=== PATIENT | female | born 1965 | race African-American/Black ===

== ENCOUNTER 2018-12-26 22:43 | Inpatient (IN) ==
[2018-12-26] MEDS ORDERED: NS 1,500 ML IV ONE (23:07)
[2018-12-26] MEDS ORDERED: VANCOMYCIN 1 GM/NS 1 GM/250 ML IVPB IV ONE (23:08)
[2018-12-26] MEDS ORDERED: ZOSYN 3.375 GM in NS 50 ML IV ONE (23:08)
[2018-12-26] MEDS ORDERED: ZOFRAN IV ONE (23:11)
[2018-12-26] MEDS ORDERED: MORPHINE IV ONE (23:11)
[2018-12-26 23:31] LABS: BASO# 0.01 X1000 (0.0-0.2); BASO% 0.5 % (0.0-0.8); EOS# 0.01 X1000 (0.0-0.7); EOS% 0.5 % (0.0-10.0); HEMATOCRIT 31.6 % (37.0-47.0); HEMOGLOBIN 10.1 g/dL (12.0-16.0); IMM GRAN# 0.01 X1000 (0.0-0.04); IMM GRAN% 0.5 % (0.0-0.5); LYMPH# 0.45 X1000 (1.2-3.4); LYMPH% 21.6 % (20.5-51.1); MONO# 0.46 X1000 (0.11-0.59); MONO% 22.1 % (1.7-9.3); MPV 11.1 FL (7.4-10.4); NEUT# 1.14 X1000 (1.4-6.5); NEUT% 54.8 % (42.2-75.2); PLT 112 X1000 (130-400); RBC 4.39 XMIL (4.2-5.4); RDW 13.9 % (11.5-14.5); WBC 2.08 X1000 (4.8-10.8)
[2018-12-26 23:43] LABS: INR 1.05; PROTIME 14.2 Seconds (11.0-16.0)
[2018-12-26 23:44] LABS: PTT 37.7 Seconds (22.3-41.8)
[2018-12-26 23:50] LABS: LYMPHS 24 % (21-51); MONO 16 % (1-9); SEGS 58 % (42-75)
[2018-12-26 23:52] LABS: AGAP 15; ALBUMIN 3.6 g/dL (3.5-5.0); ALKALINE PHOSPHATASE 263 U/L (32-104); BUN 13 mg/dL (8-22); CALCIUM 8.1 mg/dL (8.8-10.2); CHLORIDE 98 mmol/L (98-107); CK PROFILE 59 U/L (24-173); COSMO 271; CREATININE 0.5 mg/dL (0.5-0.9); ESTIMATED GFR > 60; GLUCOSE 119 mg/dL (70-104); GOT 125 U/L (10-30); GPT 49 U/L (10-36); HYPOCHROM OCCASIONAL; LIPASE 20 U/L (13-60); MICROCYTOSIS OCCASIONAL; OVALOCYTES 1+; POIKILOCYTOSIS 1+; POTASSIUM 3.1 mmol/L (3.5-5.1); SODIUM 135 mmol/L (136-145); TCO2 22 mmol/L (25-35); TOTAL PROTEIN 7.8 g/dL (6.3-8.3)
--- NOTE | 2018-12-26 23:54 | PROVIDER DOCUMENTATION ---
HPI-Fever - General Chief Complaint: SEPSIS ALERT - P Stated Complaint: N/V/D Time Seen by Provider: 12/26/18 22:44 Source: patient Allergies/Adverse Reactions: Patient Allergies Allergy/AdvReac Type Severity Reaction Status Date / Time hydroxychloroquine AdvReac Unknown Verified 12/26/18 23:50 [From Plaquenil] Home Medications: Home Medication List Medication Instructions Recorded Confirmed Last Taken Type Lacosamide [Vimpat] 1 each PO DAILY 12/24/15 12/26/18 1 Day Ago History ~08/16/17 Metoprolol Succinate E.r. [Toprol 25 mg PO DAILY #30 tablet 12/25/15 12/26/18 1 Day Ago Rx Xl] ~08/16/17 Elviteg/Angeles/Emtric/Tenofo Dis 1 tab PO QHS 12/26/18 12/26/18 Unknown History [Stribild Tablet] - History of Present Illness-Fever Nature of Presenting Problem: pt c/o worsening abdominal and flank pain x 2 weeks, with hematochezia, and juan blood in stool, pt reports severe diarrhea that is yellow in color w/ mucous x 4 days. pt in HIV positive and has HX of c-diff, and hemorrhoids. pt also reports weight loss and severe body cramping. pt deneis cough and congestion or other respiratory sx at this time. Fever Severity/Quality: reports: greater than 102 F Onset/Duration: reports: unsure Timing: reports: still present, getting worse Severity: reports: severe Context: reports: HIV/AIDS Recent Illness?: reports: UTI, C. 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 Cognitive Baseline: alert, oriented x3 Modifying Factors: improves with: nothing Associated Symptoms: reports: diarrhea, dizziness, fatigue, fever/chills, loss of appetite, malaise, muscle aches, vomiting, weakness, other (flank pain, LLq pain) Similar Symptoms Previously?: No Recently seen or treated by another doctor?: No - Glascow Coma Score Best Eye Response (Tatyana): (4) open spontaneously Best Verbal Response (Tatyana): (5) oriented Best Motor Response (Tatyana): (6) obeys commands Review of Systems - Adult - REVIEW OF SYSTEMS - ADULT Constitutional: reports: see HPI, fever, fatique, weight loss Eyes: reports: no symptoms reported Ears, Nose, Mouth & Throat: reports: no symptoms reported Cardiovascular: reports: no symptoms reported Respiratory: reports: no symptoms reported Gastrointestinal: reports: no symptoms reported Genitourinary: reports: see HPI, flank pain, hesitency, urinary retention Musculoskeletal: reports: see HPI Integumentary: reports: no symptoms reported Neurological: reports: no symptoms reported Psychiatric: reports: no symptoms reported Endocrine: reports: no symptoms reported Hematologic/Lymphatic: reports: other (HIV) Allergic/Immunologic: reports: no symptoms reported All Other Systems: Reviewed and Negative Past History - Adult - PAST MEDICAL HISTORY-ADULT Review of Records: reports: Old Records Reviewed, Nursing Assessment Review, Medications Reviewed Major Childhood Illnesses: reports: denies history Cardiovascular: reports: HTN, hyperlipidemia Respiratory: reports: denies history Gastrointestinal: reports: denies history Obstetrical/Gynecological: reports: denies history Genitourinary: reports: denies history Musculoskeletal: reports: arthritis Neurological: reports: headaches/migraines, Seizures/Epilepsy Endocrine/Immune: reports: anemia, HIV/AIDS, thyroid disorder (HYPERTHYROID) Other Conditions: reports: denies history - PRIOR SURGERIES/PROCEDURES Surgical/Procedure History: reports: appendectomy, BTL, - IMMUNIZATION STATUS Childhood Immunizations: UTD Flu Vaccine: See Nurse Assessment - FAMILY HISTORY Family History: reviewed, not pertinent - SOCIAL HISTORY Smoking: denies Substance Use: none/never Alcohol Use Frequency: never Physical Exam-General - PHYSICAL EXAM-ADULT Initial Vital Signs Reviewed: Yes - CONSTITUTIONAL General Appearance: appears well, alert, no apparent distress - EYES Eyes: PERRL/EOMI, pink conjunctivae. negative: anisocoria, conjuctival exudate, photophobia, sclera injected - HEAD, EARS, NOSE, MOUTH & THROAT HENMT: normocephalic/atraumatic, moist mucous membranes, normal ENT inspection - NECK Neck: non-tender, full range of motion, thyromegaly - RESPIRATORY Respiratory: chest non-tender, lungs clear, normal breath sounds, no pleuratic chest pain, no respiratory distress, no accessory muscle use - CARDIOVASCULAR Cardiovascular: normal peripheral pulses, regular rate, rhythm, no edema - GASTROINTESTINAL (ABDOMEN) Abdominal Exam: soft, no organomegaly, no pulsatile mass, tenderness (mild LLQ a nd left flank tenderness). negative: abdominal bruit, abnormal bowel sounds, distended, guarding, rigid, rebound - GENITOURINARY Rectal Exam: normal rectal tone, hemorrhoids (several small internal and external hemmoroids noted, no juan blood noted), tenderness - LYMPHATIC Lymphatic: no adenopathy - MUSCULOSKELETAL Back Exam: normal inspection, no vertebral tenderness, CVA tenderness (left side) Extremity: normal range of motion, non-tender, normal gait - SKIN Integumentary: normal color, normal turgor, warm/dry - NEUROLOGIC Neurologic: grossly normal, no motor/sensory deficits. negative: facial droop, focal weakness, motor weakness, sensory deficit - PSYCHIATRIC Psych/Mental Status: normal thought content, normal thought process, oriented x 3, anxious Progress - PLAN OF CARE/RESULTS Progress/Plan/Lab Results: Vital Signs - 8 hr 12/26/18 22:52 12/27/18 01:07 Temperature 102.1 F H Pulse Rate 131 H 105 H Respiratory Rate 36 H 20 Blood Pressure 133/78 130/71 O2 Sat by Pulse Oximetry 100 100 Bedside Urine ED: Urine Bedside Start: 12/27/18 00:27 Freq: ORDERED Status: Active Protocol: Activity Type Activity Date Activity User E-Sign Co-Sign Detail Recorded Client Recorded Date Recorded By Document 12/27/18 00:39 [id number] 12/27/18 00:54 [id number] 12/27/18 00:39 Point of Care [Bedside Point of Care] -Lot # [id number] - Results Negative -Control Line Visible? Yes Laboratory Results - last 24 hr 12/26/18 12/26/18 12/26/18 00:37 00:37 23:15 WBC 2.08 L RBC 4.39 Hgb 10.1 L Hct 31.6 L MCV 72.0 L MCH 23.0 L MCHC 32.0 L RDW Std Deviation 13.9 Plt Count 112 L MPV 11.1 H Immature Gran % (Auto) 0.5 Neut % (Auto) 54.8 Lymph % (Auto) 21.6 Mills % (Auto) 22.1 H Eos % (Auto) 0.5 Baso % (Auto) 0.5 Immature Gran # (Auto) 0.01 Neut # (Auto) 1.14 L Lymph # (Auto) 0.45 L Mills # (Auto) 0.46 Eos # (Auto) 0.01 Baso # (Auto) 0.01 Segmented Neutrophils 58 Lymphocytes 24 Monocytes 16 H Atypical Lymphocytes 2.0 Hypochromia OCCASIONAL Poikilocytosis 1+ Microcytosis OCCASIONAL Ovalocytes 1+ PT INR PTT (Actin FS) Sodium Potassium Chloride Carbon Dioxide Anion Gap BUN Creatinine Estimated GFR/1.73 m2 BUN/Creatinine Ratio Glucose Calculated Osmolality Calcium Total Bilirubin AST ALT Alkaline Phosphatase Creatine Kinase Troponin T Total Protein Albumin Globulin Albumin/Globulin Ratio Lipase Plasma Lactate Urine Color YELLOW Urine Clarity CLEAR Urine pH 6.0 Ur Specific [place] 1.015 Urine Protein 1+(30 mg/dL) A Urine Ketones NEGATIVE Urine Blood 2+ A Urine Nitrite NEGATIVE Urine Bilirubin NEGATIVE Urine Urobilinogen NORMAL Urine WBC NEGATIVE Urine Glucose NEGATIVE Urine Test Urine Opiates Screen PRESUMPTIVE POSITIVE A Ur Oxycodone Screen NONE DETECTED Urine Methadone Screen NONE DETECTED U Propoxyphene Qual NONE DETECTED Ur Barbituates Screen NONE DETECTED Ur Tricyclics Screen NONE DETECTED Ur Phencyclidine Scrn NONE DETECTED Ur Amphetamines Screen NONE DETECTED U Methamphetamines Scrn NONE DETECTED U Benzodiazepines Scrn NONE DETECTED Urine Cocaine Screen NONE DETECTED U Cannabinoids Screen NONE DETECTED 12/26/18 12/26/18 12/26/18 23:15 23:15 23:15 WBC RBC Hgb Hct MCV MCH MCHC RDW Std Deviation Plt Count MPV Immature Gran % (Auto) Neut % (Auto) Lymph % (Auto) Mills % (Auto) Eos % (Auto) Baso % (Auto) Immature Gran # (Auto) Neut # (Auto) Lymph # (Auto) Mills # (Auto) Eos # (Auto) Baso # (Auto) Segmented Neutrophils Lymphocytes Monocytes Atypical Lymphocytes Hypochromia Poikilocytosis Microcytosis Ovalocytes PT 14.2 INR 1.05 PTT (Actin FS) 37.7 Sodium 135 L Potassium 3.1 L Chloride 98 Carbon Dioxide 22 L Anion Gap 15 BUN 13 Creatinine 0.5 Estimated GFR/1.73 m2 > 60 BUN/Creatinine Ratio 26 Glucose 119 H Calculated Osmolality 271 Calcium 8.1 L Total Bilirubin 0.40 AST 125 H ALT 49 H Alkaline Phosphatase 263 H Creatine Kinase 59 Troponin T < 0.010 Total Protein 7.8 Albumin 3.6 Globulin 4.0 Albumin/Globulin Ratio 1.0 Lipase 20 Plasma Lactate Urine Color Urine Clarity Urine pH Ur Specific [place] Urine Protein Urine Ketones Urine Blood Urine Nitrite Urine Bilirubin Urine Urobilinogen Urine WBC Urine Glucose Urine Test Urine Opiates Screen Ur Oxycodone Screen Urine Methadone Screen U Propoxyphene Qual Ur Barbituates Screen Ur Tricyclics Screen Ur Phencyclidine Scrn Ur Amphetamines Screen U Methamphetamines Scrn U Benzodiazepines Scrn Urine Cocaine Screen U Cannabinoids Screen 12/26/18 12/27/18 23:15 00:37 WBC RBC Hgb Hct MCV MCH MCHC RDW Std Deviation Plt Count MPV Immature Gran % (Auto) Neut % (Auto) Lymph % (Auto) Mills % (Auto) Eos % (Auto) Baso % (Auto) Immature Gran # (Auto) Neut # (Auto) Lymph # (Auto) Mills # (Auto) Eos # (Auto) Baso # (Auto) Segmented Neutrophils Lymphocytes Monocytes Atypical Lymphocytes Hypochromia Poikilocytosis Microcytosis Ovalocytes PT INR PTT (Actin FS) Sodium Potassium Chloride Carbon Dioxide Anion Gap BUN Creatinine Estimated GFR/1.73 m2 BUN/Creatinine Ratio Glucose Calculated Osmolality Calcium Total Bilirubin AST ALT Alkaline Phosphatase Creatine Kinase Troponin T Total Protein Albumin Globulin Albumin/Globulin Ratio Lipase Plasma Lactate 3.9 H Urine Color Urine Clarity Urine pH Ur Specific [place] Urine Protein Urine Ketones Urine Blood Urine Nitrite Urine Bilirubin Urine Urobilinogen Urine WBC Urine Glucose Urine Test NEGATIVE Urine Opiates Screen Ur Oxycodone Screen Urine Methadone Screen U Propoxyphene Qual Ur Barbituates Screen Ur Tricyclics Screen Ur Phencyclidine Scrn Ur Amphetamines Screen U Methamphetamines Scrn U Benzodiazepines Scrn Urine Cocaine Screen U Cannabinoids Screen Orders Category Date Time Status Cardiac Monitoring DIRECTED Care 12/26/18 23:02 Active ED: Urine Bedside ORDERED Care 12/27/18 00:27 Active IV Insertion ORDERED Care 12/26/18 23:02 Completed Notify MD of + Sepsis Screen NOW Care 12/26/18 23:02 Active Notify Physician As Ordered Care 12/26/18 23:02 Active Saline Loc NOW Care 12/26/18 22:45 Active CHEST-1 VIEW [RAD] Stat Exams 12/26/18 23:[address] ABD/PELVIS W/IV CONT ONLY [CT] Stat Exams 12/27/18 00:10 Taken BLOOD CULTURE [BLDCUL] Stat Lab 12/26/18 23:16 Ordered CBC WITH DIFF [HEME] Stat Lab 12/26/18 23:15 Completed CD4-CD8 RATIO [HH] Stat Lab 12/27/18 01:16 Uncollected CK PROFILE [SP CHEM] Stat Lab 12/26/18 23:15 Completed COMPREHENSIVE METABOLIC PANEL [CHEM] Stat Lab 12/26/18 23:15 Completed LACTATE, PLASMA [CHEM] Q3H Lab 12/26/18 23:15 Completed LACTATE, PLASMA [CHEM] Q3H Lab 12/27/18 02:15 Uncollected LACTATE, PLASMA [CHEM] Q3H Lab 12/27/18 05:15 Uncollected LIPASE [CHEM] Stat Lab 12/26/18 23:15 Completed OCCULT BLOOD SCREEN STOOL PL Stat Lab 12/26/18 23:11 Uncollected TEST-URINE [PREG] Stat Lab 12/27/18 00:37 Completed PROTIME WITH INR [COAG] Stat Lab 12/26/18 23:15 Completed PTT [COAG] Stat Lab 12/26/18 23:15 Completed STOOL CULTURE [RM] Stat Lab 12/27/18 01:14 Uncollected Stool [C DIFF TOXIN PL] Stat Lab 12/27/18 01:14 Uncollected TROPONIN T Stat Lab 12/26/18 23:[address] W/POSS RFLX CULT [URINALYSIS] Stat Lab 12/26/18 00:37 Re[address] UR[address] DRUG SCREEN [address] Stat Lab 12/26/18 00:37 Completed 0.9% Sodium Chloride Inj [Ns] 1,500 ml Med 12/26/18 23:07 Discontinued IV 999 mls/hr Acetaminophen [Ofirmev 1000 mg/Isotonic Soln] Med 12/26/18 23:58 Discontinued 1,000 mg in 100 ml IV STAT Ibuprofen [Motrin] Med 12/27/18 00:07 Discontinued 600 mg PO NOW ONE Morphine Med 12/26/18 23:11 Discontinued 4 mg IV NOW ONE Ondansetron [Zofran] Med 12/26/18 23:11 Discontinued 4 mg IV NOW ONE Piperacillin/Tazobactam [Zosyn] 3.375 gm Med 12/26/18 23:08 Discontinued 0.9% Sodium Chloride Inj [Ns] 50 ml IV NOW Vancomycin 1 gm/Ns Med 12/26/18 23:08 Discontinued 1 gm in 250 ml IV NOW Abd Pain/Abn Bleeding Stat Oth 12/26/18 22:45 Ordered Oxygen Device Stat Oth 12/26/18 23:02 Completed Result Diagrams: 12/26/18 23:15 12/26/18 23:15 - XRAY 1 XRAY: Bilateral XRAY Study: Chest Impression: Normal Comparison with other Films: no changes XRAY Interpretation: NAD - CT/MRI 1 CT Study: Abdomen, Pelvis CT Results: NAD per radiologist - CONSULTS/PCP/HOSPITALIST Notification #1 *Consult/PCP/Hospitalist*: Dr. Vargas, hospitalist Time Discussed: 02:15 Consult Disposition: Admit - CHANGE OF SHIFT REPORT (ED Provider) 1 Report Given and Care Transferred to:: Dr Iraheta Items Pending: CT/MRI Results, Physician Consult/Arrival (awaiting CT results, and Dr Vargas consult for admission) Departure - Departure Date of Disposition Decision: 12/27/18 Time of Disposition Decision: 02:17 DIAGNOSIS: HIV antibody positive, Dehydration, Febrile illness Disposition: ADMITTED INPATIENT 09 Certified Medical Emergency: Emergent Condition: Stable Referrals and Follow-Ups: Natacha Lynn CRNP [Primary Care Provider] - - Critical Care Note This patient required my direct & personal management of CC.: No Attestation - Physician/ DAMARIS Attestation Patient care was provided by Advanced Practice Provider:: Yes Advanced Practice Provider:: Dudley Palencia Advanced Practice Provider documentation review:: The Mid-level provider documentation, treatment plan and medical decision making was reviewed by the physician who agrees with all treatment and medical decision making by the MLP. The physician spent face to face time with patient:: No Advanced Practice Provider documentation review:: Supervising physician onsite and consulted in the evaluation and care of this patient. The physician did not have a face to face encounter with the patient.
[2018-12-26] MEDS ORDERED: OFIRMEV 1000 MG/ISOTONIC SOLN 1,000 MG/100 ML BOTTLE IV STA (23:58)
[2018-12-27] MEDS ORDERED: MOTRIN PO ONE (00:07)
[2018-12-27 01:01] LABS: UR AMPHETAMINES QUAL NONE DETECTED (NONE DETECT); UR BARBITUATES QUAL NONE DETECTED (NONE DETECT); UR BENZODIAZEPIN QUAL NONE DETECTED (NONE DETECT); UR CANNABINOIDS QUAL NONE DETECTED (NONE DETECT); UR COCAINE QUAL NONE DETECTED (NONE DETECT); UR METHADONE QUAL NONE DETECTED (NONE DETECT); UR METHAMPHETAMINE QUAL NONE DETECTED (NONE DETECT); UR OPIATES QUAL PRESUMPTIVE POSITIVE (NONE DETECT); UR OXYCODONE QUAL NONE DETECTED (NONE DETECT); UR PCP QUAL NONE DETECTED (NONE DETECT); UR PROPOXYPHENE QUAL NONE DETECTED (NONE DETECT); UR TCA QUAL NONE DETECTED (NONE DETECT)
[2018-12-27 01:17] LABS: BILIRUBIN URINE NEGATIVE (NEGATIVE); BLOOD URINE 2+ (NEGATIVE); CLARITY CLEAR (CLEAR); COLOR YELLOW; GLUCOSE URINE NEGATIVE (NEGATIVE); KETONE URINE NEGATIVE (NEGATIVE); LEUKOCYTES URINE NEGATIVE (NEGATIVE); NITRITE URINE NEGATIVE (NEGATIVE); PROTEIN URINE 1+(30 mg/dL) mg/dL (NEGATIVE); SP GRAVITY URINE 1.015; UROBILINOGEN URINE NORMAL
[2018-12-27 01:31] LABS: URINE BACTERIA 2+ /HFP; URINE EPITHELIAL CELLS <10 /HPF (<10); URINE RBC <10 /HPF (<10); URINE WBC <10 /HPF (<10); URINE YEAST PRESENT /HPF
[2018-12-27 01:32] LABS: URINE CAST NONE SEEN /LPF; URINE CRYSTAL NONE SEEN /HPF; URINE SOURCE CLEAN CATCH
[2018-12-27 01:57] LABS: OCCULT BLOOD 1 NEGATIVE (NEGATIVE)
[2018-12-27] MEDS ORDERED: NS 2,000 ML IV ONE (02:20)
[2018-12-27] MEDS ORDERED: MORPHINE IV PRN (02:26)
[2018-12-27] MEDS ORDERED: ZOFRAN IV PRN (02:26)
[2018-12-27] MEDS ORDERED: NS 1,000 ML IV ONE (02:26)
[2018-12-27] MEDS ORDERED: TYLENOL PO PRN (02:29)
[2018-12-27] MEDS ORDERED: VANCOMYCIN IV PER PHARMACY MISC SCH (02:30)
[2018-12-27] MEDS ORDERED: VANCOMYCIN 500 MG/NS 500 MG/100 ML IVPB IV ONE (05:00)
--- NOTE | 2018-12-27 09:05 | HISTORY AND PHYSICAL ---
PRIMARY CARE PHYSICIAN: Natacha Lynn CHIEF COMPLAINT: Abdominal pain and left flank pain with hematochezia and severe diarrhea over the past 5 days that progressively worsened. HISTORY OF PRESENTING ILLNESS: This is a 53-year-old female who presented to [facility] ER with complaints of abdominal and flank pain on the left side for the past 5 days. She also states she has had some severe diarrhea, juan blood in her stool, has a history of C. difficile and hemorrhoids. She also reports weight loss and severe body cramping, but is also noted to be HIV positive. Her workup showed a temperature of 102.1 degrees with a pulse of 131 and respirations of 36 on arrival. Her laboratory data showed a white blood cell count of 2.08. It is noted on 12/10/2018 she had a white blood cell count of 6.10. Her sodium was 135, potassium 3.1. Her liver enzymes were elevated at AST of 125, ALT of 49, alkaline phosphatase of 263. Her plasma lactate was 3.9. Her urinalysis was negative except for 2+ bacteria. Her stool for occult blood was negative. We did a CT of the abdomen and pelvis that was documented in the ER as no acute findings, awaiting the radiology report, but she was admitted for further evaluation and treatment. PAST MEDICAL HISTORY: HIV positive, anemia, hypertension, and seizure disorder. PAST SURGICAL HISTORY: Appendectomy and a . SOCIAL HISTORY: She currently lives with family. Denies any tobacco, alcohol or illicit drug use. FAMILY HISTORY: Reviewed and noncontributory. ALLERGIES: Hydroxychloroquine. HOME MEDICATIONS: She takes Atripla 600 mg/200 mg/300 mg tablet daily, Vimpat 100 mg p.o. b.i.d., and metoprolol 100 mg p.o. daily. LABORATORY DATA: White blood cell count of 2.08, hemoglobin 10.1, hematocrit 31.6, platelets 112,000. PT and INR of 14.2 and 1.05. Sodium 135, potassium 3.1, chloride 98, CO2 of 22, BUN of 13, creatinine of 0.5, glucose of 119, AST of 125, ALT of 49, alkaline phosphatase of 263. Cardiac enzymes were negative. Lipase of 20. Plasma lactate 3.9 on arrival, recheck 4 hours later was down to 1.1 and then rechecked, and it was 1.0. Urinalysis was negative except for 2+ bacteria. Urine test was negative. Stool for occult blood was negative. Urine drug screen was presumptive positive for opiates. CT of the abdomen and pelvis per ER documentation was read as normal with no acute findings. Chest x-ray is pending at this time. REVIEW OF SYSTEMS: She was positive for a fever, chills, body aches. Denied any chest pain, coughing, shortness of breath. She was positive for some abdominal pain, left flank pain, hematochezia, severe diarrhea. No burning or hurting with urination. PHYSICAL EXAMINATION: VITAL SIGNS: On arrival, she had a temperature of a 102.1 degrees, pulse 131, respirations 36, blood pressure 133/78 saturating 100% on room air. Currently, her temperature is down to 98.6, pulse 88, respirations 18, blood pressure 121/62, saturating 100% on room air. GENERAL: This is a 53-year-old female who is lying in the bed and answers questions appropriately. HEENT: Normocephalic, atraumatic. Normal ENT inspection. Oropharynx and nares are clear. EYES: Pupils are equal, round, and reactive to light and accommodation. Extraocular movements are intact. NECK: Normal inspection. Normal range of motion. LUNGS: Clear to auscultation bilaterally with equal lung expansion and chest wall movement. HEART: With regular rate and rhythm. No murmurs, rubs, or gallops. ABDOMEN: Soft, mildly tender to palpation throughout, and bowel sounds are present x4 quadrants. MUSCULOSKELETAL: She had 5/5 strength x4 extremities. NEUROLOGICAL: The cranial nerves 2-12 appear grossly intact. ASSESSMENT: 1. Sepsis. 2. Abdominal pain. 3. Mild hypokalemia. 4. Human immunodeficiency virus positive patient. 5. Elevated liver function tests. 6. Candidiasis in her urine. PLAN: She was admitted to the Medical Unit, placed on telemetry, O2 per protocol. We are going to place her on a clear liquid diet. We are going to check stool for C. difficile and stool culture. We are going to check a CD4/CD8 ratio count. She is on normal saline at 125 mL an hour, vancomycin per pharmacy protocol, Zosyn 3.375 g IV q.6. Continue her home medications and will recheck a CBC and CMP in the a.m. Further orders after seen by attending. Dictated by JAMES Santizo for Joaquín Vargas MD cc: JAMES Santizo MD
--- NOTE | 2018-12-27 09:09 | Diag Imaging Result Doc PS360 ---
EXAM: CHEST-1 VIEW INDICATION: sepsis TECHNIQUE: One view COMPARISON: 02/26/2018 FINDINGS: There is evidence of prior granulomatous disease, stable. The lungs are grossly clear. There is no discrete pleural fluid collection or pneumothorax. The cardiomediastinal silhouette and central vasculature are grossly unremarkable. IMPRESSION: No evidence of acute pathology by plain radiograph. Electronically signed by Rupert Silver 12/27/2018 9:06 AM
[2018-12-27] MEDS: ZOSYN 3.375 GM in NS 50 ML IV SCH ×3 (10:03→22:40)
[2018-12-27] MEDS: DIFLUCAN PO SCH (10:04)
[2018-12-27] MEDS: TOPROL XL PO SCH (10:04)
[2018-12-27] MEDS: VIMPAT PO SCH ×2 (10:04→22:40)
[2018-12-27] MEDS: NS 1,000 ML IV SCH ×3 (10:11→16:40)
--- NOTE | 2018-12-27 10:27 | Diag Imaging Result Doc PS360 ---
EXAM: CT ABD/PELVIS W/IV CONT ONLY INDICATION: abd pain TECHNIQUE: This exam was performed using automated exposure control, adjustment of mA or kV according to patient size, and/or use of iterative reconstruction technique. COMPARISON: 03/31/2014 FINDINGS: There is suggestion of minimal bibasilar subsegmental atelectasis. The gallbladder, liver, spleen, pancreas, and adrenal glands are unremarkable. There is a punctate nonobstructing intrarenal stone on the right. There is no hydronephrosis. The kidneys are essentially unremarkable, otherwise. The urinary bladder appears normal. The reproductive tract is grossly unremarkable as imaged. There has been a prior appendectomy. There is liquid stool throughout the colon, which may indicate a diarrheal illness. No focal bowel wall thickening or bowel obstruction is identified. The GI tract is grossly unremarkable, otherwise. No focal inflammatory changes, free abdominal gas, or free fluid is identified. There is no evidence of acute osseous abnormality. IMPRESSION: Liquid stool in the colon, which may indicate a diarrheal illness. No evidence of acute pathology, otherwise. Electronically signed by Rupert Silver 12/27/2018 10:24 AM
[2018-12-27] MEDS ORDERED: PREPARATION H OINT TOP PRN (12:15)
[2018-12-27] MEDS: ATRIPLA PO SCH (15:16)
[2018-12-27] MEDS ORDERED: VANCOMYCIN 1,250 MG in NS 250 ML IV SCH (17:00)
--- NOTE | 2018-12-27 18:06 | HISTORY AND PHYSICAL ---
ADDENDUM: The patient is HIV positive but is well controlled. She says her viral load is in the 50s. She does not know her CD4 count. She came in with fever and diarrhea. She has had symptoms for a couple days. There was preliminary evidence of sepsis associated as such. CT scan did not reveal any significant pathology. Certainly may be a gastroenteritis, but could be a more complicated colitis. The patient has been empirically placed on antibiotics. I do not think we necessarily need to continue her on vancomycin, but Zosyn I think is appropriate until we can get cultures back including ova and parasites as she is HIV positive. We will continue IV fluids, and follow clinically. This is a [id number] encounter note with JAMES Santizo. We have done CD4 counts and HIV viral load. Will follow clinically. DISPOSITION: Pending her clinical status. cc: Joaquín Vargas MD MTDD
[2018-12-27] MEDS: IMODIUM PO PRN (18:34)
[2018-12-28] MEDS: IMODIUM PO PRN (00:18)
[2018-12-28] MEDS: NS 1,000 ML IV SCH ×3 (02:22→17:45)
[2018-12-28] MEDS: ZOSYN 3.375 GM in NS 50 ML IV SCH ×2 (05:08→10:34)
[2018-12-28] MEDS ORDERED: PRILOSEC PO SCH (07:00)
[2018-12-28 07:28] LABS: BASO# 0.01 X1000 (0.0-0.2); BASO% 0.6 % (0.0-0.8); EOS# 0.01 X1000 (0.0-0.7); EOS% 0.6 % (0.0-10.0); HEMATOCRIT 25.7 % (37.0-47.0); LYMPH# 0.84 X1000 (1.2-3.4); LYMPH% 46.9 % (20.5-51.1); MCH 22.9 PG (27-31); MCHC 31.1 g/dL (33-37); MCV 73.4 FL (81-99); MONO# 0.29 X1000 (0.11-0.59); MONO% 16.2 % (1.7-9.3); NEUT# 0.64 X1000 (1.4-6.5); NEUT% 35.7 % (42.2-75.2); PLT 69 X1000 (130-400); RDW 14.3 % (11.5-14.5); WBC 1.79 X1000 (4.8-10.8)
[2018-12-28 08:26] LABS: AGAP 12; ALBUMIN 2.8 g/dL (3.5-5.0); ALKALINE PHOSPHATASE 201 U/L (32-104); BUN 5 mg/dL (8-22); CALCIUM 7.8 mg/dL (8.8-10.2); CHLORIDE 109 mmol/L (98-107); COSMO 274; CREATININE 0.4 mg/dL (0.5-0.9); ESTIMATED GFR > 60; GLUCOSE 81 mg/dL (70-104); GOT 107 U/L (10-30); GPT 46 U/L (10-36); POTASSIUM 2.9 mmol/L (3.5-5.1); SODIUM 139 mmol/L (136-145); TCO2 19 mmol/L (25-35); TOTAL PROTEIN 6.3 g/dL (6.3-8.3)
[2018-12-28] MEDS: VIMPAT PO SCH ×3 (10:36→21:48)
[2018-12-28] MEDS: TOPROL XL PO SCH (10:36)
[2018-12-28] MEDS: DIFLUCAN PO SCH (10:36)
[2018-12-28] MEDS: ATRIPLA PO SCH (10:37)
[2018-12-28 11:21] LABS: ANISOCYTOSIS 1+; LYMPHS 36 % (21-51); MONO 12 % (1-9); SEGS 52 % (42-75)
[2018-12-28] MEDS ORDERED: LOMOTIL PO PRN (16:00)
--- NOTE | 2018-12-28 17:16 | PROGRESS NOTE ---
DATE: 12/28/2018 SUBJECTIVE: The patient is no major complaints. OBJECTIVE: Blood pressure is 122/66, heart rate of 94, respiratory rate 18, temperature 98.3 degrees, T-max was 100 degrees.Cardiovascular: Regular rate and rhythm. Pulmonary: Bilateral breath sounds clear to auscultation. GI: Soft, nontender, nondistended. Bowel sounds are positive. LABORATORY DATA: Her white count has actually come down 1.79, hemoglobin and hematocrit 8 and 25, platelets of 69,000. Chemistry, potassium 2.9, AST and ALT of 107 and 46 with a normal T bilirubin. PROBLEM LIST: 1. Gastroenteritis. We will continue supportive care. All of her stool studies are negative. She is still having diarrhea. We will continue antimotility agents. There is not a clear bacterial source so I am going to stop antibiotics in case these are making things worse and follow up on her testing. We will advance her diet and follow. 2. Human immunodeficiency virus status. Per patient she is well controlled. We are still waiting on her CD4 count. We will continue her Atripla and follow. 3. Hypokalemia. We will supplement and follow. DISPOSITION: Pending her clinical status but anticipate discharge tomorrow if diarrhea is improved and she is tolerating p.o. without difficulty. cc: Joaquín Vargas MD
[2018-12-28 17:34] LABS: HEPATITIS PROFILE ACUTE SEE COMMENTS
[2018-12-28] MEDS: CULTURELLE PO SCH (17:43)
[2018-12-28] MEDS: QUESTRAN LIGHT PO SCH (21:49)
[2018-12-29] MEDS: NS 1,000 ML IV SCH ×2 (03:45→11:15)
[2018-12-29 07:21] LABS: AGAP 9; BUN 8 mg/dL (8-22); CHLORIDE 112 mmol/L (98-107); COSMO 283; CREATININE 0.3 mg/dL (0.5-0.9); ESTIMATED GFR > 60; GLUCOSE 96 mg/dL (70-104); POTASSIUM 3.1 mmol/L (3.5-5.1); SODIUM 143 mmol/L (136-145); TCO2 22 mmol/L (25-35)
[2018-12-29 07:32] LABS: HEMATOCRIT 26.5 % (37.0-47.0); HEMOGLOBIN 8.3 g/dL (12.0-16.0); RBC 3.68 XMIL (4.2-5.4); WBC 1.97 X1000 (4.8-10.8)
[2018-12-29 07:33] LABS: BASO# 0.02 X1000 (0.0-0.2); EOS# 0.02 X1000 (0.0-0.7); LYMPH# 0.92 X1000 (1.2-3.4); LYMPH% 46.7 % (20.5-51.1); MCH 22.6 PG (27-31); MCHC 31.3 g/dL (33-37); MONO# 0.34 X1000 (0.11-0.59); MONO% 17.3 % (1.7-9.3); NEUT# 0.67 X1000 (1.4-6.5); PLT 54 X1000 (130-400); RDW 14.4 % (11.5-14.5)
[2018-12-29 07:41] VITALS: BP 130/53
[2018-12-29] MEDS ORDERED: KLOR-CON PO ONE (08:41)
[2018-12-29] MEDS: VIMPAT PO SCH (09:32)
[2018-12-29] MEDS: CULTURELLE PO SCH (09:32)
[2018-12-29] MEDS: QUESTRAN LIGHT PO SCH (09:32)
[2018-12-29] MEDS: DIFLUCAN PO SCH (09:33)
[2018-12-29] MEDS: ATRIPLA PO SCH (09:33)
[2018-12-29] MEDS: TOPROL XL PO SCH (09:33)
[2018-12-29 09:47] LABS: ANISOCYTOSIS 2+; LYMPHS 45 % (21-51); MONO 12 % (1-9); SEGS 43 % (42-75)
[2018-12-29 09:48] LABS: MICROCYTOSIS 1+; POIKILOCYTOSIS OCCASIONAL
--- NOTE | 2018-12-30 10:17 | DISCHARGE SUMMARY ---
ADMISSION DATE: 12/27/2018 DISCHARGE DATE: 12/29/2018 DIAGNOSES: 1. Sepsis. 2. Gastroenteritis. 3. Human immunodeficiency virus. 4. Hypokalemia. 5. Elevated liver function tests. DIAGNOSTICS: 1. Chest x-ray revealed no evidence of acute pathology. 2. CT of the abdomen and pelvis, liquid stool in the colon which may indicate a diarrheal illness. No evidence of acute pathology. MICROBIOLOGY: 1. Blood cultures x2 revealed no growth after 48 hours. 2. Urine culture revealed no growth. 3. Stool culture revealed no enteric pathogen. 4. Stool for ova and parasites and Tri Wister stain revealed none seen. HOSPITAL COURSE: Ms. Coronado presented to the emergency room complaining of abdominal pain, left flank pain with severe diarrhea that had been present for 5 days. She was initially placed on a clear liquid diet. This has been advanced to regular diet which she tolerated well. The patient had 1 bowel movement on the 24 hours of the and 4 bowel movements on the 24 hours prior. We trended her electrolytes and repleted as appropriate during the hospitalization. She was noted to have a white count of 1.79, 1.97. The patient is followed by Dr. Vu Monahan and Marisol Mills, his nurse practitioner. I did discuss the labs as well as the hospitalization with Dr. Monahan, who stated that he felt the patient could be discharged today and he would have his office call the patient for a follow-up within the next week for further evaluation. He was aware that her CD4 count has not returned which he will be watching for this and followup. I did discuss this with the patient who was very thankful as she does want to be discharged today. DISCHARGE VITAL SIGNS: Blood pressure is 130/53 with a heart rate of 90, respirations 20, temperature 98.7 degrees with room air saturations 100%. DISCHARGE PHYSICAL EXAMINATION: Cardiovascular: Regular rate and rhythm. S1 and S2 appreciated. No lower extremity edema. Calves nontender bilateral. Pulmonary: Breath sounds clear. No increased work of breathing noted. Gastrointestinal: Abdomen is soft, nontender, nondistended. Bowel sounds in all 4 quadrants. Neurologic: She is alert and oriented x3. Skin: Is warm and dry. DISCHARGE MEDICATIONS: 1. Metoprolol 100 mg p.o. daily. 2. Vimpat 100 mg p.o. b.i.d. 3. Diflucan 100 mg p.o. daily x5 days. 4. Atripla 1 p.o. daily. 5. Lomotil 1 p.o. 4 times a day as needed for diarrhea. 6. Questran Light 4 g p.o. b.i.d. FOLLOWUP: Dr. Vu Monahan, the office will call the patient and schedule appointment within the next week. She was instructed to call Dr. Monahan to be seen sooner for temperature greater than 100, for recurring nausea, vomiting, diarrhea, for any syncope, dizziness, chest pain, palpitations, a productive cough, any hematuria, dysuria, frequency, urgency or for any questions or concerns that she may have. She is being discharged home in stable condition with her daughters. TIME SPENT: This is a greater than 30 minute discharge. Dictated by JAMES Herman for Avtar Delgado MD cc: JAMES Herman MD
--- NOTE | 2018-12-30 13:55 | DISCHARGE SUMMARY ---
ADMISSION DATE: 12/27/2018 DISCHARGE DATE: 12/29/2018 ADDENDUM: Patient was seen and examined by myself. Full note dictated and discussed with nurse practitioner. The patient has known HIV. She was admitted with gastroenteritis. Her potassium was low at 2.9. This was replaced. It was 3.1 this morning. She was given another dose of potassium. Overall, she notes that she is feeling better. She is eating and drinking much better. Therefore, she will be discharged home. She will follow up outpatient with her primary care. cc: Avtar Delgado MD
== END 2018-12-29 11:41 | disposition home or self-care (01) | DRG 872 ==
LOC: P.MEDSURG 22:43 → P.ED 22:43 → SUATTDRO 12-27 03:01 → OBSVTOIN 12-27 03:01
PROVIDERS: ATTEND Family Medicine